=== PATIENT | female | born 1945 | race Caucasian/White ===

== ENCOUNTER → 2024-12-29 15:01 | Outpatient (REF) | payer MEDICARE, OTHER, SELFPAY | LOC: RCS 15:01 | PROVIDERS: ATTENDING PHYSICIAN Internal Medicine Cardiovascular Disease; FAMILY PHYSICIAN Family Medicine | DX: R06.09 Other forms of dyspnea (principal); I45.10 Unspecified right bundle-branch block | CPT/HCPCS: 93306 ==